=== PATIENT | female | born 1995 | race Caucasian/White ===

== ENCOUNTER 2017-07-30 21:24 | Emergency (ER) | payer OTHER ==
[2017-07-30] MEDS ORDERED: DIPHENHYDRAMINE HCL 50 MG CAPSULE PO ONE (23:05)
--- NOTE | 2017-07-30 23:06 | ER Document Report ---
ED General - General Chief Complaint: Skin Problem Stated Complaint: POSSIBLE ALLERGIC REACTION Time Seen by Provider: 07/30/17 22:49 Notes: Patient is a 22-year-old female presents with complaint of rash over her upper extremities. She was she diagnosis contact dermatitis by her physician. She then returned says not improving and they did a scraping and he came back positive for scabies. She was placed on permethrin cream approximately 5 days ago. The red bumps seem to be subsiding some however she has noticed some bruising over her thighs where she had the bumps before. She is also has redness over her bilateral forearms that she says fu and hurts. She is wondering if the redness bruising is from a continuous scabies infection. She was also given an oral anti-parasitic medication. She does not remember the name of this medication. TRAVEL OUTSIDE OF THE [place] IN LAST 30 DAYS: No - Related Data Allergies/Adverse Reactions: No Known Allergies Allergy (Unverified 07/30/17 21:40) Past Medical History - Social History Smoking Status: Never Smoker Frequency of alcohol use: None Drug Abuse: None Family History: Reviewed & Not Pertinent Patient has suicidal ideation: No Patient has homicidal ideation: No Renal/ Medical History: Denies: Hx Peritoneal Dialysis Review of Systems - Review of Systems Notes: My Normal Review Basic REVIEW OF SYSTEMS: CONSTITUTIONAL : Denies fever, chills, or sweats. Denies recent illness. RESPIRATORY: Denies cough, cold, or chest congestion. Denies shortness of breath, difficulty breathing, or wheezing. GASTROINTESTINAL: Denies abdominal pain. Denies nausea, vomiting, or diarrhea. Denies constipation. Last BM: MUSCULOSKELETAL: Denies neck or back pain or joint pain or swelling. SKIN: Recent diagnosis of scabies rash. Redness over her forearms. NEUROLOGICAL: Denies altered mental status or loss of consciousness. Denies headache. Denies weakness or paralysis or loss of use of either side. Denies problems with gait or speech. Denies sensory or motor loss. ALL OTHER SYSTEMS REVIEWED AND NEGATIVE. Physical Exam - Vital signs Vitals: Temp Pulse Resp BP Pulse Ox 97.7 F 59 L 18 144/94 H 100 07/30/17 21:42 07/30/17 21:42 07/30/17 21:42 07/30/17 21:42 07/30/17 21:42 - Notes Notes: General Appearance: Well nourished, alert, cooperative, no acute distress, mild obvious discomfort. Vitals: reviewed, See vital signs table. Head: no swelling or tenderness to the head Eyes: PERRL, EOMI, Conjuctiva clear Mouth: No decreasd moisture Lungs: No wheezing, No rales, No rhonci, No accessory muscle use, good air exchange bilaterally. Heart: Normal rate, Regular rythm, No murmur, no rub Extremities: strength 5/5 in all extremities, good pulses in all extremities, no swelling or tenderness in the extremities, no edema. Skin: Patient has several small bumps over the skin. These are mainly on her upper and lower extremities. Some of the webspaces. They are consistent with scabies infection. They seem to be resolving at this time. Patient does have redness over the skin extends from her wrist to her elbows. This looks very consistent with that of a sunburn. Patient does have some small areas of bruising over the thighs. Denies any further lesions versus scabies there at this time. Neuro: speech clear, oriented x 3, normal affect, responds appropriately to questions. Course - Re-evaluation Re-evalutation: 07/31/17 05:55 Do not know the name of the oral antiparasitic medication that the patient was given. The redness on her forearms looks consistent with a sunburn reaction and was like what you would get if you are taking doxycycline or another medication that would make her skin very sensitive to the sun. I am unsure if this or medications she was given those causes. I do not think is related to the lotion being that patient with lotion of her entire body and she only has redness over the sun exposed area on her forearms. I do believe that the scabies infection itself is improving being that the bumps are now very small and seem to be resolving. Patient will be discharged home. I encouraged her follow-up closely with her primary care doctor to make sure that her redness is resolving. I encourage her to keep her skin covered. I informed her that if the redness on her skin goes away and the bumps are still there then she can reapply the permethrin cream one time. Patient encouraged to return to ER if she is spreading redness or worsening or symptoms. Patient agrees with plan will be discharged home. Dictation of this chart was performed using voice recognition software; therefore, there may be some unintended grammatical errors. - Vital Signs Vital signs: Temp Pulse Resp BP Pulse Ox 97.7 F 66 17 116/73 100 07/30/17 23:55 07/30/17 23:55 07/30/17 23:55 07/30/17 23:55 07/30/17 23:55 Discharge - Discharge Clinical Impression: Scabies exposure, Skin irritation Condition: Good Disposition: HOME, SELF-CARE Additional Instructions: PLease do not use the permetherin cream again until the redness on your arm has subsided. Please keep your arms covered to minimize sun exposure. Please buy over the counter lidocaine ointment to apply to your burned arms. please follow up with your doctor in 2-3 days for reevaluation. Return to the ER immediately if you have fevers or feel unwell. Forms: Return to Work
[2017-07-31 05:37] VITALS: BP 116/73
== END 2017-07-30 23:55 | disposition home or self-care (01) ==
LOC: ER 21:24
DX: B86 Scabies (principal); R21 Rash and other nonspecific skin eruption
CPT/HCPCS: 99283

== ENCOUNTER 2017-10-11 11:08 | Emergency (ER) | payer OTHER ==
--- NOTE | 2017-10-11 12:07 | ER Document Report ---
HPI - HPI Pain Level: 3 Context: 22 yo healthy female c/o dysuria, urgency, frequency, hematuria x 1 day. denies fever, back pain, vaginal discharge, odor or pain Associated Symptoms: None Exacerbated by: Denies Relieved by: Denies Similar symptoms previously: Yes Recently seen / treated by doctor: No - ROS Systems Reviewed and Negative: Yes All other systems reviewed and negative - CONSTITUTIONAL Constitutional: REPORTS: Chills. DENIES: Fever - EENT EENT: DENIES: Sore Throat, Ear Pain, Eye problems - NEURO Neurology: DENIES: Headache - CARDIOVASCULAR Cardiovascular: DENIES: Chest pain - RESPIRATORY Respiratory: DENIES: Trouble Breathing, Coughing - GASTROINTESTINAL Gastrointestinal: DENIES: Abdominal Pain, Black / Bloody Stools - URINARY Urinary: REPORTS: Dysuria, Urgency - REPRODUCTIVE Reproductive: DENIES: :, Abnormal bleeding / discharge - MUSCULOSKELETAL Musculoskeletal: DENIES: Extremity pain Past Medical History - General Information source: Patient - Social History Smoking Status: Never Smoker Frequency of alcohol use: Occasional Drug Abuse: None Lives with: Family Family History: Reviewed & Not Pertinent Patient has suicidal ideation: No Patient has homicidal ideation: No Renal/ Medical History: Denies: Hx Peritoneal Dialysis Malignancy 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 IN LAST 30 DAYS: No - HEENT HEENT: Atraumatic, PERRLA - NECK Neck: Normal Inspection, Supple - RESPIRATORY Respiratory: Breath Sounds Normal, No Respiratory Distress O2 Sat by Pulse Oximetry: 99 - CARDIOVASCULAR Cardiovascular: Regular Rate, Regular Rhythm - GI/ABDOMEN Gastrointestinal: Abdomen Soft, Abdomen Tender - mild suprapubic tenderness., Normal Bowel Sounds. negative: Abdominal Guarding, Abdominal Rebound, No Organomegaly, Abdominal Mass - MUSCULOSKELETAL/EXTREMETIES Musculoskeletal/Extremeties: SMITHA YAO - NEURO Level of Consciousness: Awake, Alert, Appropriate - DERM Integumentary: Warm, Dry Course - Re-evaluation Re-evalutation: 10/11/17 12:26 urinalysis large leuks and blood. pt is afebrile, VSS. no s/s sepsis. will treat as uncomplicated cystitis. home care, f/u with pcm, ED return precautions discussed with patient. pt agreeable with plan and stable for discharge - Vital Signs Vital signs: Temp Pulse Resp BP Pulse Ox 97.8 F 86 18 119/66 99 10/11/17 11:17 10/11/17 11:17 10/11/17 11:17 10/11/17 11:17 10/11/17 11:17 Discharge - Discharge Clinical Impression: UTI (urinary tract infection) Qualifiers: Urinary tract infection type: acute cystitis Condition: Stable Disposition: HOME, SELF-CARE Instructions: Antibiotic Therapy ([facility]), Nitrofurantoin ([facility]), Urinary Tract Infection ([facility]), Urinary Anesthetic Agent ([facility]) Additional Instructions: your urine is showing infection I have added a urine culture. this takes several days to result. if any change in treatment is indicated, we will call you take medications as prescribed push fluids f/u pcm if symptoms persist return to ER for any worsening Prescriptions: Nitrofurantoin Macrocrystal [Macrodantin] 100 mg PO QID #28 capsule Phenazopyridine HCl [Pyridium 200 mg Tablet] 200 mg PO TID #15 tablet Forms: Return to Work
[2017-10-11 12:15] LABS: APPEARANCE,URINE CLOUDY; BILIRUBIN,URINE NEGATIVE (NEGATIVE); GLUCOSE, URINE NEGATIVE (NEGATIVE); KETONES,URINE NEGATIVE (NEGATIVE); LEUKOCYTE ESTERASE,URINE LARGE (NEGATIVE); NITRITE,URINE NEGATIVE (NEGATIVE); PROTEIN,URINE 30 mg/dL (NEGATIVE); URINE SPECIFIC GRAVITY 1.025; UROBILINOGEN,URINE NEGATIVE mg/dL (<2.0)
[2017-10-11 12:38] VITALS: BP 123/74
== END 2017-10-11 12:40 | disposition home or self-care (01) ==
LOC: ER 11:08
DX: N30.01 Acute cystitis with hematuria (principal)
CPT/HCPCS: 81001; 87086; 99284